=== PATIENT | female | born 1960 | race Caucasian/White ===

== ENCOUNTER → 2016-09-13 14:23 | Outpatient (CLI) | payer BC | END | disposition home or self-care (01) | LOC: D.MRI 14:23 | DX: S83.281A Other tear of lateral meniscus, current injury, right knee, initial encounter (principal) ==

== ENCOUNTER 2016-11-15 07:00 | Day surgery (SDC) | payer BC ==
[2016-11-13 16:22] LABS: HEMATOCRIT 39.3 % (36.0-48.0); HEMOGLOBIN 13.1 g/dL (12-16); MCH 32.5 pg (26.0-34.0); MCHC 33.3 g/dL (31.0-37.0); MCV 97.5 fL (80.0-100.0); MEAN PLATELET VOLUME 9.9 fL (7.4-10.4); RBC 4.03 10x6/uL (4.00-5.40); RDW 12.6 % (11.5-14.5); WBC 9.1 10x3/uL (4.8-10.8)
[~2016-11-15] VITALS: Ht 177.8 cm; Wt 83.9 kg
[~2016-11-15 07:00] MED LIST: AMBIEN CR12.5 MG/BO PO; CALCIUM 500 + D1 TAB PO; COREG 3.1253.125 MG PO; ESTRACE1 MG PO; LIALDA1.2 G PO; VESICARE10 MG PO; ZOCOR20 MG PO
[2016-11-15 07:42] VITALS: BP 125/81; Ht 177.8 cm; Wt 83.9 kg
[2016-11-15] MEDS ORDERED: PERCOCET 10/3251 TA1 PO (11:56)
--- NOTE | 2016-11-15 14:26 | NUR ---
1130 IV DC WITH CATHER TIP INTACT [address] MAYA FOR DC ORDERS
--- NOTE | 2016-11-16 15:24 | OP ---
PATIENT NAME: JOHN TONEY MEDICAL RECORD: [id number] :58 [facility] AD[facility]ION DATE: SURGEON: ROBBY MAYA MD DATE OF OPERATION: 11/15/2016 PREOPERATIVE DIAGNOSES: 1. Osteochondral defects with subchondral cyst of the right knee medial tibial plateau. 2. Osteochondral defects with subchondral cyst of the right knee lateral femoral condyle. POSTOPERATIVE DIAGNOSES: 1. Osteochondral defects with subchondral cyst of the right knee medial tibial plateau. 2. Osteochondral defects with subchondral cyst of the right knee lateral femoral condyle. PROCEDURES: 1. Right knee arthroscopy. 2. X-ray guided subchondroplasty with AccuFill of the tibia. 3. X-ray guided subchondroplasty with AccuFill of the femur. SURGEON: Robby Maya MD ANESTHESIA: General. INTRAOPERATIVE COMPLICATIONS: None. SUMMARY OF PATHOLOGIC FINDINGS: The patient did have a measure of osteoarthritis in the lateral compartment of the knee; however, grade II and III at best. OPERATIVE SUMMARY IN DETAIL: After obtaining the appropriate preoperative orthopedic surgery consent as well as anesthetic consultation, evaluation and clearance, the patient was brought to the operating room and placed on the operating table in supine position. After general laryngeal mask was administered, tourniquet was placed in the proximal aspect. The right lower extremity was then prepped and draped in routine sterile fashion. Leg was elevated and exsanguinated flexed and tourniquet inflated to 350 mmHg. Routine inferolateral portal was established. Through the inferolateral port, superomedial portal was established as well. Diagnostic arthroscopy was done at this point. After the inferomedial portal was established, diagnostic arthroscopy was done. Gentle shaving was done across the area of grade III chondromalacia of tibial plateau and in deep flexion, there were some areas of chondromalacia seen in the posterior femoral condyle consistent with the areas seen on the MRI. Having completed this, direct fluoroscopy was utilized to guide the trocar of the AccuFill system into the appropriate area as seen on the AP and lateral fluoroscopic planes on the tibial plateau. Once it was felt that the trocar was in the appropriate position, AccuFill was then filled into the lateral tibial plateau. This trocar was left in place and a second AccuFill system was brought up and then again under direct fluoroscopic guidance in both AP and lateral planes the AccuFill trocar was placed to the appropriate position in the femur, again given the femoral area of subchondral defect. This too was then filled with AccuFill again using a side delivery system and the trocars were both left in the appropriate length of 12 minutes before each was removed OPERATIVE REPORT [id number] DAWNAJOHNMILLIE CAMPBELL respectively. Having completed this, a second look arthroscopy showed no evidence of AccuFill in the knee. The arthroscopy was then removed and the arthroscopic portals were closed with 4-0 Prolene. Sterile dressings were applied. Tourniquet was deflated. The patient was awakened, taken to recovery room in stable condition. All final needle and sponge counts were correct. TRANSINT:[id number] Voice Confirmation ID: [id number] DOCUMENT ID: [id number] FRANCESCO CARCAMO, ROBBY BYRD at 1524 CC: [id number] DICTATION DATE: 11/15/16 1334 FLANGER: 11/16/[address] [facility] 11/15/16 [id number] [place] [address]
== END 2016-11-15 13:15 | disposition home or self-care (01) ==
LOC: D.OPS 07:00 → D.PAN 09:00 → D.OPS 09:00
PROVIDERS: Anesthesiology
DX: M93.20 Osteochondritis dissecans of unspecified site (principal); M17.11 Unilateral primary osteoarthritis, right knee; M25.561 Pain in right knee; Z01.812 Encounter for preprocedural laboratory examination

== ENCOUNTER 2018-12-16 19:00 | Outpatient (CLI) | payer BC ==
[2016-11-15 07:42] VITALS: BMI 26.6
[~2018-12-16 19:00] MED LIST changes: +PERCOCET 10/3251 TA1 PO
== END 2018-12-16 23:59 | disposition home or self-care (01) ==
LOC: D.MAMMO 19:00
PROVIDERS: ATTEND Family Medicine
DX: Z12.31 Encounter for screening mammogram for malignant neoplasm of breast (principal)